=== PATIENT | male | born 1955 | race Caucasian/White ===

== ENCOUNTER 2018-04-11 15:38 | Observation (INO) | payer SELFPAY ==
[~2018-04-11] VITALS: Ht 195.6 cm; Wt 79.5 kg
[2018-04-11] MEDS ORDERED: PROVENTIL0.09 MG/A1 IH (15:46)
[2018-04-11 16:32] LABS: BASO # 0.1 (0.0-0.2); BASO % 0.6 % (0.0-2.0); EOS # 1.6 (0.0-0.7); EOS % 15.1 % (0-4.0); GRAN # 7.1 (1.4-6.5); GRAN % 65.4 % (42.2-75.2); HEMATOCRIT 43.6 % (42.0-52.0); HEMOGLOBIN 15.2 g/dl (13.5-18.0); LYMPH # 1.2 (1.2-3.4); LYMPH % 10.9 % (20.0-51.0); MEAN CELL VOLUME 94 fl (80.0-100.0); MEAN CORPUSCULAR HEMOGLOBIN 33 pg (27.0-31.0); MEAN CORPUSCULAR HGB CONC 35 g/dl (33.0-37.0); MEAN PLATELET VOLUME 10.3 fl (7.4-10.4); MONO # 0.8 (0.1-0.6); MONO % 7.6 % (1.7-9.3); PLATELET COUNT 254 K/mm3 (130-400); RED BLOOD COUNT 4.63 M/mm3 (4.20-5.60); REDCELL DISTRIBUTION WIDTH-CV 11.6 % (11.5-14.5)
[2018-04-11 16:40] LABS: CALCIUM 9.7 mg/dL (8.4-10.2); CREATININE, serum 0.54 mg/dL (0.66-1.25); TOTAL PROTEIN 7.6 gm/dL (6.4-8.2)
[2018-04-11 20:05] VITALS: BP 146/97; PULSE 115; TEMP 98.2
[2018-04-11] MEDS ORDERED: BENADRYL25 M2 PO (20:53)
[2018-04-11] MEDS ORDERED: XYZAL5 MG PO (20:55)
[2018-04-11 23:54] VITALS: BP 129/79; PULSE 110; TEMP 98.2
[2018-04-12 05:17] VITALS: BP 128/84; PULSE 106; TEMP 98.4
[2018-04-12 06:50] LABS: HEMATOCRIT 45.3 % (42.0-52.0); HEMOGLOBIN 15.9 g/dl (13.5-18.0); MEAN CELL VOLUME 93 fl (80.0-100.0); MEAN CORPUSCULAR HEMOGLOBIN 33 pg (27.0-31.0); MEAN CORPUSCULAR HGB CONC 35 g/dl (33.0-37.0); MEAN PLATELET VOLUME 10.7 fl (7.4-10.4); PLATELET COUNT 282 K/mm3 (130-400); RED BLOOD COUNT 4.85 M/mm3 (4.20-5.60); REDCELL DISTRIBUTION WIDTH-CV 11.4 % (11.5-14.5)
[2018-04-12 07:00] LABS: CALCIUM 9.6 mg/dL (8.4-10.2); CHOLESTEROL RISK RATIO 3.1; CREATININE, serum 0.56 mg/dL (0.66-1.25); POTASSIUM 4.2 mmol/L (3.4-5.0)
[2018-04-12 08:01] VITALS: BP 131/89; PULSE 115; TEMP 98.3
[2018-04-12 09:27] LABS: BAND 2 % (0-10); LYMPHOCYTE 9 % (20.0-51.0); NEUTROPHILS 89 % (42.0-75.2); NUCLEATED RED BLOOD CELL 1 (0-6); PLATELET ESTIMATE NORMAL (NORMAL)
[2018-04-12 12:52] VITALS: BP 141/96; PULSE 117; TEMP 97.7
[2018-04-12 17:26] VITALS: BP 144/82; PULSE 115; TEMP 97.8
[2018-04-12 20:48] VITALS: BP 137/85; PULSE 110; TEMP 98.1
[2018-04-13 00:43] VITALS: BP 134/86; PULSE 104; TEMP 98.4
[2018-04-13 04:39] VITALS: BP 123/81; PULSE 98; TEMP 97.8
[2018-04-13 05:58] LABS: BASO % 0.1 % (0.0-2.0); GRAN # 12.6 (1.4-6.5); GRAN % 88.1 % (42.2-75.2); HEMATOCRIT 41.9 % (42.0-52.0); HEMOGLOBIN 14.8 g/dl (13.5-18.0); LYMPH # 0.8 (1.2-3.4); LYMPH % 5.8 % (20.0-51.0); MEAN CELL VOLUME 94 fl (80.0-100.0); MEAN CORPUSCULAR HEMOGLOBIN 33 pg (27.0-31.0); MEAN CORPUSCULAR HGB CONC 35 g/dl (33.0-37.0); MEAN PLATELET VOLUME 10.7 fl (7.4-10.4); MONO # 0.7 (0.1-0.6); PLATELET COUNT 266 K/mm3 (130-400); RED BLOOD COUNT 4.47 M/mm3 (4.20-5.60); REDCELL DISTRIBUTION WIDTH-CV 11.7 % (11.5-14.5)
[2018-04-13 06:14] LABS: CALCIUM 9.5 mg/dL (8.4-10.2); CREATININE, serum 0.51 mg/dL (0.66-1.25); POTASSIUM 4.5 mmol/L (3.4-5.0)
[2018-04-13 06:41] LABS: TSH w REFLEX 0.813 uIU/mL (0.465-4.680)
[2018-04-13 08:37] VITALS: BP 129/74; PULSE 116; TEMP 97.8
[2018-04-13] MEDS ORDERED: MONODOX100 PO (09:43)
[2018-04-13] MEDS ORDERED: PROVENTIL0.09 MG/A1 IH (09:44)
[2018-04-13] MEDS ORDERED: LASIX 20MG TABL20 MG PO (09:44)
[2018-04-13] MEDS ORDERED: PREDNISONE20 MG PO (09:44)
[2018-04-13] MEDS ORDERED: RT SPIRIVA18 MCG IH (09:45)
[2018-04-13 12:40] VITALS: BP 140/87; PULSE 102; TEMP 97.7
== END 2018-04-13 15:45 | disposition home or self-care (01) ==
LOC: COL.ER 15:38 → SURG 19:08
PROVIDERS: Family Medicine; Nurse Practitioner
DX: J44.1 Chronic obstructive pulmonary disease with (acute) exacerbation (principal); R60.9 Edema, unspecified; K76.89 Other specified diseases of liver; I87.8 Other specified disorders of veins; F17.210 Nicotine dependence, cigarettes, uncomplicated; Z79.51 Long term (current) use of inhaled steroids; Z80.3 Family history of malignant neoplasm of breast; Z83.3 Family history of diabetes mellitus; Z82.49 Family history of ischemic heart disease and other diseases of the circulatory system
CPT/HCPCS: G0378; J1650; J1940; J2930; J7120; J7512; Q9967

== ENCOUNTER → 2018-11-14 | Outpatient (CLI) | payer OTHER ==
[~2018-11-14] MED LIST: BENADRYL25 M2 PO; LASIX 20MG TABL20 MG PO; MONODOX100 PO; PREDNISONE20 MG PO; PROVENTIL0.09 MG/A1 IH; RT SPIRIVA18 MCG IH; XYZAL5 MG PO
== END ==
LOC: COL.PUL 07:51
DX: Z02.71 Encounter for disability determination (principal); Z87.891 Personal history of nicotine dependence